=== PATIENT | male | born 1965 | race Caucasian/White ===

== ENCOUNTER 2019-12-01 17:26 | Inpatient (IN) | payer OTHER ==
--- NOTE | 2019-12-01 17:50 | PDOC H&P ---
History of Present Illness Admission Date/PCP: 12/01/19 17:26 Patient complains of: abdominal pain. History of Present Illness: YU FLOREZ is a 54 year old male with a history of colon cancer s/p resection 05/2019 currently on chemo completed 11 cycles, was transferred from [facility] to undergo ERCP for evaluation of cholestasis. Patient had presented to outside hospital yesterday with complaints of right upper quadrant abdominal pain that began 2 weeks ago radiating from the back to the abdominal region, occurring intermittently and lasting about 8 hours with no current. Exacerbated by food intake. No alleviating factors besides not eating. Denies prior episodes. Pain often feels sharp and aching. Admits to normal bowel movements. Over there, he was noted to have hyperbilirubinemia with total bilirubin of 4 and mildly elevated aminotransferases ast 98/alt 148 and ALP of 249. CT abdomen and pelvis showed mild inflammation of the distal gallbladder as well as enlargement of his hepatic ducts and common bile duct. Ultrasound revealed 5 x 8 mm stone within the common bile duct and CBD of 0.9 mm with extrahepatic biliary duct dilation but there was negative Zhu sign, mild gallbladder wall thickening of 0.3 cm and no pericholecystic fluid. Dr. Humphreys was contacted for ERCP and patient subsequently transferred over to [facility] for ERCP. Past Medical History Malignancy Medical History: Reports: Colorectal Cancer Past Surgical History Past Surgical History: Reports: Orthopedic Surgery - hand, Other - Partial colon resection, Social History Information Source: Patient Lives with: Spouse/Significant other Smoking Status: Former Smoker Cigarettes Packs Per Day: 1 Electronic Cigarette use?: No Number of Years Smokin Frequency of Alcohol Use: None Hx Recreational Drug Use: No Hx Prescription Drug Abuse: No - Advance Directive Resuscitation Status: Full Code Family History Family History: Malignancy Parental Family History Reviewed: Yes Children Family History Reviewed: NA Sibling(s) Family History Reviewed.: Yes Medication/Allergy Allergies/Adverse Reactions: tramadol Allergy (Verified 12/01/19 17:49) Review of Systems Constitutional: ABSENT: chills, fever(s) Eyes: ABSENT: visual disturbances Cardiovascular: ABSENT: chest pain Respiratory: ABSENT: cough, dyspnea Gastrointestinal: PRESENT: abdominal pain. ABSENT: constipation, diarrhea, nausea, vomiting Genitourinary: ABSENT: dysuria, nocturia Musculoskeletal: ABSENT: joint swelling Integumentary: ABSENT: diaphoresis Neurological: ABSENT: confusion Psychiatric: ABSENT: anxiety Endocrine: ABSENT: polyuria Hematologic/Lymphatic: ABSENT: easy bruising Physical Exam General appearance: PRESENT: no acute distress, cooperative Head exam: PRESENT: normocephalic Eye exam: PRESENT: EOMI. ABSENT: scleral icterus Mouth exam: PRESENT: neck supple Neck exam: ABSENT: JVD Respiratory exam: PRESENT: clear to auscultation nohemy, unlabored. ABSENT: tachypnea, wheezes Cardiovascular exam: PRESENT: RRR, +S1, +S2. ABSENT: tachycardia GI/Abdominal exam: PRESENT: normal bowel sounds, soft, tenderness - Minimal right upper quadrant tenderness. ABSENT: distended, firm, guarding, rebound, rigid Gentrourinary exam: ABSENT: ecchymosis Extremities exam: ABSENT: pedal edema Musculoskeletal exam: PRESENT: ambulatory Neurological exam: PRESENT: alert, awake, oriented to person, oriented to place, oriented to time, oriented to situation Psychiatric exam: ABSENT: agitated, anxious Focused psych exam: ABSENT: pressured speech Skin exam: ABSENT: jaundice Assessment and Plan - Diagnosis (1) Choledocholithiasis with obstruction Qualifiers: Cholecystitis presence: without cholecystitis Qualified Code(s): K80.51 - Calculus of bile duct without cholangitis or cholecystitis with obstruction Is this a current diagnosis for this admission?: Yes Plan: RUQ ultrasound from [facility] report reviewed by me which demonstrates 5 x 8 mm stone within the common bile duct and CBD of 0.9 mm with extrahepatic biliary duct dilation but there was negative Zhu sign, mild gallbladder wall thickening of 0.3 cm and no pericholecystic fluid. Obtain CMP and CBC with lipase Consult placed for Dr. Humphreys Clear liquids for now if tolerable N.p.o. past midnight in case of possible ERCP Pain control and antiemetics as needed IV fluids (2) Colon cancer Qualifiers: Colon location: ascending Qualified Code(s): C18.2 - Malignant neoplasm of ascending colon Is this a current diagnosis for this admission?: Yes Plan: Diagnosed May 2019 at which time he underwent partial colonic resection. Has completed 11 cycles of chemo and is due for 1 more cycle of chemo which has been rescheduled for Friday next week by his oncologist Dr. Martinez. - Time Time Spent with patient: 35 or more minutes
[2019-12-01] MEDS ORDERED: TEMAZEPAM 7.5 MG CAPSULE PO PRN (18:26)
[2019-12-01] MEDS ORDERED: DOCUSATE SODIUM 100 MG CAPSULE PO PRN (18:26)
[2019-12-01] MEDS ORDERED: ONDANSETRON HCL INJ/PF 4 MG/2 ML SDV IV PRN (18:26)
[2019-12-01] MEDS ORDERED: PROMETHAZINE HCL INJ 25 MG/1 ML VIAL IV PRN (18:26)
[2019-12-01] MEDS ORDERED: INFLUENZA QUAD (6MOS+) 2019-20 VAC 0.5 ML SYR IM ONE (18:26)
[2019-12-01] MEDS ORDERED: GLUCAGON,HUMAN RECOMB 1 MG INJ SUBCUT PRN (18:40)
[2019-12-01] MEDS ORDERED: DEXTROSE 40% GEL 15 GM TUBE PO PRN ×2 (18:40)
[2019-12-01] MEDS ORDERED: DEXTROSE 50%-WATER 25 GM/50 ML DISP.SYRIN IV PRN ×2 (18:40)
[2019-12-01] MEDS: OXYCODONE-ACETAMINOPHEN 5-325 MG TABLET PO PRN ×2 (18:53→22:46)
[2019-12-01] MEDS: DEXTROSE 5%-NORMAL SALINE 1,000 ML IV PRN (18:54)
[2019-12-01 19:05] LABS: INTERNATIONAL RATION (INR) 1.01; PROTHROMBIN TIME 13.3 SEC (11.4-15.4)
[2019-12-01 19:06] LABS: PARTIAL THROMBOPLASTIN TIME 28.1 SEC (23.5-35.8)
[2019-12-01 19:08] LABS: HEMATOCRIT 40.1 % (37.9-51.0); HEMOGLOBIN 13.6 g/dL (13.5-17.0); MEAN CORPUSCULAR HEMOGLOBIN 29.2 pg (27.0-33.4); MEAN CORPUSCULAR HGB CONC 33.9 g/dL (32.0-36.0); MEAN CORPUSCULAR VOLUME 86 fl (80-97); RED BLOOD COUNT 4.67 10^6/uL (4.35-5.55); RED CELL DISTRIBUTION WIDTH 21.3 % (11.5-14.0); WHITE BLOOD COUNT 2.9 10^3/uL (4.0-10.5)
[2019-12-01 19:14] LABS: ALKALINE PHOSPHATASE 275 U/L (38-126); ANION GAP 12 (5-19); ASPARTATE AMINO TRANSFERASE 123 U/L (17-59); BILIRUBIN,DIRECT 2.9 mg/dL (0.0-0.4); BILIRUBIN,TOTAL 4.3 mg/dL (0.2-1.3); BLOOD UREA NITROGEN 9 mg/dL (7-20); CALCIUM 9.6 mg/dL (8.4-10.2); CARBON DIOXIDE 23 mmol/L (22-30); CHLORIDE 105 mmol/L (98-107); GLUCOSE 89 mg/dL (75-110); POTASSIUM 4.2 mmol/L (3.6-5.0); TOTAL PROTEIN 7.6 g/dL (6.3-8.2)
[2019-12-01 19:29] LABS: PLATELET COUNT 81 10^3/uL (150-450)
[2019-12-01] MEDS: ACETAMINOPHEN 325 MG TABLET PO PRN ×2 (19:48→23:06)
[2019-12-01] MEDS ORDERED: FENTANYL CITRATE INJ/PF 100 MCG/2 ML AMPUL IV PRN (20:26)
[2019-12-01] MEDS: HEPARIN SOD (PORCINE) 5,000 UNIT/ML 1 ML VIAL SUBCUT SCH (21:14)
[2019-12-02] MEDS: HEPARIN SOD (PORCINE) 5,000 UNIT/ML 1 ML VIAL SUBCUT SCH ×3 (05:03→21:09)
[2019-12-02] MEDS: PANTOPRAZOLE SODIUM 40 MG TABLET.DR PO SCH (05:03)
[2019-12-02 06:06] LABS: HEMATOCRIT 37.8 % (37.9-51.0); HEMOGLOBIN 12.7 g/dL (13.5-17.0); MEAN CORPUSCULAR HGB CONC 33.7 g/dL (32.0-36.0); MEAN CORPUSCULAR VOLUME 86 fl (80-97); RED BLOOD COUNT 4.39 10^6/uL (4.35-5.55); RED CELL DISTRIBUTION WIDTH 21.2 % (11.5-14.0); WHITE BLOOD COUNT 2.2 10^3/uL (4.0-10.5)
[2019-12-02 06:13] LABS: ALBUMIN 3.5 g/dL (3.5-5.0); ALKALINE PHOSPHATASE 227 U/L (38-126); ANION GAP 9 (5-19); ASPARTATE AMINO TRANSFERASE 120 U/L (17-59); BILIRUBIN,DIRECT 3.3 mg/dL (0.0-0.4); BLOOD UREA NITROGEN 7 mg/dL (7-20); CALCIUM 9.3 mg/dL (8.4-10.2); CARBON DIOXIDE 22 mmol/L (22-30); CHLORIDE 107 mmol/L (98-107); CHOLESTEROL 195.54 mg/dL (0-200); GLUCOSE 107 mg/dL (75-110); POTASSIUM 4.3 mmol/L (3.6-5.0); TOTAL PROTEIN 6.5 g/dL (6.3-8.2); TRIGLYCERIDES 84 mg/dL (<150)
[2019-12-02] MEDS: DEXTROSE 5%-NORMAL SALINE 1,000 ML IV PRN ×3 (06:14→19:56)
[2019-12-02 06:24] LABS: DIRECT LDL 113 mg/dL (<100)
--- NOTE | 2019-12-02 06:42 | PDOC CONSULTATION ---
Consultation Consult Date: 12/02/19 Provider Consulted: SURGICAL SURGICALIST History of Present Illness Admission Date/PCP: 12/01/19 17:26 History of Present Illness: YU FLOREZ is a 54 year old male seen in consultation at the request of the hospitalist service. This was a patient found to have choledocholithiasis at an outlying facility. The patient was transferred here for ERCP. He has a history of recent colon cancer, status post resection. The patient is currently undergoing chemotherapy (FOLFOX). At present, the patient denies chest pain, shortness of breath, fevers, chills, nausea, vomiting, abdominal pain, melena, hematochezia, blurry vision, dizziness. For the last 2 days patient has experienced severe, stabbing abdominal pain and significant nausea. Narcotics make the pain better. Nothing makes it worse. The pain radiates to his back, and it is sharp/stabbing in nature. He rates his pain 10 out of 10 at its worst. He reports that his pain is 1 out of 10 right now. Past Medical History Malignancy Medical History: Reports: Colorectal Cancer - Currently undergoing FOLFOX therapy Past Surgical History Past Surgical History: Reports: Orthopedic Surgery - hand, Other - Partial colon resection, Social History Lives with: Spouse/Significant other Smoking Status: Former Smoker Cigarettes Packs Per Day: 1 Electronic Cigarette use?: No Number of Years Smokin Frequency of Alcohol Use: None Hx Recreational Drug Use: No Drugs: None Hx Prescription Drug Abuse: No - Advance Directive Resuscitation Status: Full Code Family History Family History: Malignancy Parental Family History Reviewed: Yes Children Family History Reviewed: Yes Sibling(s) Family History Reviewed.: Yes Medication/Allergy Allergies/Adverse Reactions: tramadol Allergy (Verified 12/01/19 17:49) Review of Systems Constitutional: PRESENT: anorexia. ABSENT: chills, fatigue, fever(s), headache(s) Eyes: ABSENT: visual disturbances Nose, Mouth, and Throat: ABSENT: sore throat Cardiovascular: ABSENT: chest pain Respiratory: ABSENT: cough, dyspnea Gastrointestinal: PRESENT: abdominal pain - Now subsided, nausea - Now subsided. ABSENT: heartburn, hematemesis, hematochezia, melena, vomiting Genitourinary: ABSENT: dysuria Musculoskeletal: ABSENT: back pain Integumentary: ABSENT: rash Neurological: ABSENT: confusion, convulsions, dizziness Psychiatric: ABSENT: anxiety, depression Endocrine: ABSENT: cold intolerance, heat intolerance Hematologic/Lymphatic: ABSENT: easy bleeding, easy bruising Physical Exam Vital Signs: Temp Pulse Resp BP Pulse Ox 97.5 F 58 L 21 H 166/81 H 100 12/01/19 23:39 12/01/19 23:39 12/01/19 23:39 12/01/19 23:39 12/01/19 23:39 Intake & Output 11/30/19 12/01/19 12/02/19 06:59 06:59 06:59 Intake Total 1150 Output Total 1050 Balance 100 Weight 109.1 kg General appearance: PRESENT: no acute distress. ABSENT: obese Head exam: PRESENT: atraumatic, normocephalic Eye exam: PRESENT: EOMI, PERRLA. ABSENT: scleral icterus Mouth exam: PRESENT: moist, neck supple Neck exam: ABSENT: tenderness, thyromegaly, tracheal deviation Respiratory exam: PRESENT: unlabored. ABSENT: tachypnea, wheezes Cardiovascular exam: PRESENT: RRR Pulses: PRESENT: normal radial pulses GI/Abdominal exam: PRESENT: soft. ABSENT: tenderness Rectal exam: PRESENT: deferred Extremities exam: ABSENT: clubbing Musculoskeletal exam: ABSENT: deformity Neurological exam: PRESENT: alert, awake, oriented to person, oriented to place, oriented to time, oriented to situation, CN II-XII grossly intact. ABSENT: motor sensory deficit Psychiatric exam: ABSENT: agitated, anxious, depressed Focused psych exam: ABSENT: delusional Skin exam: PRESENT: jaundice. ABSENT: cyanosis, erythema Results Laboratory Results: 12/02/19 05:35 12/01/19 12/01/19 12/02/19 18:44 18:44 05:35 WBC 2.9 L RBC 4.67 Hgb 13.6 Hct 40.1 MCV 86 MCH 29.2 MCHC 33.9 RDW 21.3 H Plt Count 81 L Sodium 140.2 137.8 Potassium 4.2 4.3 Chloride 105 107 Carbon Dioxide 23 22 Anion Gap 12 9 BUN 9 7 Creatinine 0.75 0.68 Est GFR ( Amer) > 60 > 60 Glucose 89 107 Calcium 9.6 9.3 Magnesium 2.2 2.2 Total Bilirubin 4.3 H 5.0 H AST 123 H 120 H Alkaline Phosphatase 275 H 227 H Total Protein 7.6 6.5 Albumin 4.0 3.5 Triglycerides 84 Cholesterol 195.54 LDL Cholesterol Direct 113 H VLDL Cholesterol 17.0 HDL Cholesterol 62 Lipase 547.4 H Assessment & Plan - Diagnosis (1) Choledocholithiasis with obstruction Qualifiers: Cholecystitis presence: without cholecystitis Qualified Code(s): K80.51 - Calculus of bile duct without cholangitis or cholecystitis with obstruction Is this a current diagnosis for this admission?: Yes - Plan Summary Plan Summary: This is a 54-year-old male with choledocholithiasis and obstruction. His bilirubin is 5 today. The patient is set up for an ERCP in the near future. After discussion with the patient, he is stated that his oncologist "will not allow him to have surgery" while he is on chemotherapy. The surgical list today we will touch base with his oncologist. If this is truly the case, the patient may require ERCP with stent placement, until chemotherapy can be stopped. Will perform cholecystectomy as soon as is feasible. Will follow.
[2019-12-02 06:45] LABS: PLATELET COUNT 73 10^3/uL (150-450)
[2019-12-02 06:50] LABS: ABSOLUTE LYMPHOCYTES# (MANUAL) 0.7 10^3/uL (0.5-4.7); ABSOLUTE MONOCYTES # (MANUAL) 0.4 10^3/uL (0.1-1.4); BAND NEUTROPHILS % (MANUAL) 1 % (3-5); BASOPHILS % (MANUAL) 0 % (0-2); EOSINOPHILS % (MANUAL) 1 % (0-6); LYMPHOCYTES % (MANUAL) 31 % (13-45); MONOCYTES % (MANUAL) 18 % (3-13); SEGMENTED NEUTROPHILS % (MAN) 49 % (42-78); TOTAL CELLS COUNTED 100
[2019-12-02 06:58] LABS: ANISOCYTOSIS 3+; OVALOCYTES 1+; PLATELET COMMENT DECREASED; POIKILOCYTOSIS 1+
[2019-12-02 06:59] LABS: TEAR DROP CELLS SLIGHT
[2019-12-02] MEDS ORDERED: MORPHINE SULFATE 10 MG/ML INJ IV PRN (07:21)
[2019-12-02] MEDS ORDERED: SUCCINYLCHOLINE CHLORIDE INJ 200 MG/10 ML VIAL ONE (09:08)
[2019-12-02] MEDS ORDERED: DEXAMETHASONE SOD PHOSPHATE INJ 4 MG/1 ML VIAL ONE (09:08)
--- NOTE | 2019-12-02 10:05 | PDOC PROGRESS REPORT ---
Subjective Progress Note for:: 12/02/19 Subjective:: Had pain yesterday. No pain this morning. Feels quite well. Reason For Visit: OBSTRUCTIVE CHOLEDOCOLITHIESIS Physical Exam Vital Signs: Temp Pulse Resp BP Pulse Ox 97.6 F 54 L 17 101/53 L 99 12/02/19 07:36 12/02/19 07:36 12/02/19 07:36 12/02/19 07:36 12/02/19 07:36 Intake & Output 12/01/19 12/02/19 12/03/19 06:59 06:59 06:59 Intake Total 1150 Output Total 1050 Balance 100 Weight 109.1 kg General appearance: PRESENT: no acute distress, cooperative Respiratory exam: PRESENT: clear to auscultation nohemy Cardiovascular exam: PRESENT: RRR GI/Abdominal exam: PRESENT: other - Soft, nondistended, nontender to palpation even with deep palpation in the right upper quadrant. Results Laboratory Results: 12/02/19 05:35 12/02/19 05:35 12/01/19 12/01/19 12/02/19 18:44 18:44 05:35 WBC 2.9 L 2.2 L RBC 4.67 4.39 Hgb 13.6 12.7 L Hct 40.1 37.8 L MCV 86 86 MCH 29.2 29.0 MCHC 33.9 33.7 RDW 21.3 H 21.2 H Plt Count 81 L 73 L Seg Neutrophils % Not Reportable Sodium 140.2 Potassium 4.2 Chloride 105 Carbon Dioxide 23 Anion Gap 12 BUN 9 Creatinine 0.75 Est GFR ( Amer) > 60 Glucose 89 Calcium 9.6 Magnesium 2.2 Total Bilirubin 4.3 H AST 123 H Alkaline Phosphatase 275 H Total Protein 7.6 Albumin 4.0 Triglycerides Cholesterol LDL Cholesterol Direct VLDL Cholesterol HDL Cholesterol Lipase 547.4 H 12/02/19 05:35 WBC RBC Hgb Hct MCV MCH MCHC RDW Plt Count Seg Neutrophils % Sodium 137.8 Potassium 4.3 Chloride 107 Carbon Dioxide 22 Anion Gap 9 BUN 7 Creatinine 0.68 Est GFR ( Amer) > 60 Glucose 107 Calcium 9.3 Magnesium 2.2 Total Bilirubin 5.0 H AST 120 H Alkaline Phosphatase 227 H Total Protein 6.5 Albumin 3.5 Triglycerides 84 Cholesterol 195.54 LDL Cholesterol Direct 113 H VLDL Cholesterol 17.0 HDL Cholesterol 62 Lipase Assessment & Plan - Diagnosis (1) Choledocholithiasis with obstruction Qualifiers: Cholecystitis presence: without cholecystitis Qualified Code(s): K80.51 - Calculus of bile duct without cholangitis or cholecystitis with obstruction Is this a current diagnosis for this admission?: Yes Plan: Patient with obstructive choledocholithiasis without evidence of cholangitis. Ideally he should undergo an ERCP followed by laparoscopic cholecystectomy. However patient is leukopenic status post his chemotherapy. I had a long discussion with his oncologist. Oncologist feels that if he needs any urgent procedure he should have it done. ERCP is strongly indicated to relieve his obstruction and avoid cholangitis. As far as his cholecystectomy afterwards, I do not think he has cholecystitis at this time since he has no pain and no tenderness and this procedure can wait a couple of weeks until his white blood cell count recovers. His oncologist concurs with my recommendations. Patient can be transferred back to his hospital after his ERCP with follow-up with his surgeon who did his colon cancer surgery for semi-elective cholecystectomy in the next few weeks. - Time Time Spent with patient: Less than 15 minutes
--- NOTE | 2019-12-02 15:35 | PDOC PROGRESS REPORT ---
Subjective Progress Note for:: 12/02/19 Subjective:: Patient was in a lot of pain yesterday night. However this morning his pain has resolved. He was having 1 of those paroxysmal episodes. Currently has no other complaints. Reason For Visit: OBSTRUCTIVE CHOLEDOCOLITHIESIS Physical Exam Vital Signs: Temp Pulse Resp BP Pulse Ox 97.9 F 57 L 16 105/54 L 99 12/02/19 11:02 12/02/19 11:02 12/02/19 11:02 12/02/19 11:02 12/02/19 11:02 Intake & Output 12/01/19 12/02/19 12/03/19 06:59 06:59 06:59 Intake Total 1150 1000 Output Total 1050 Balance 100 1000 Weight 109.1 kg 109.1 kg General appearance: PRESENT: no acute distress, cooperative Neck exam: ABSENT: JVD Respiratory exam: PRESENT: clear to auscultation nohemy, unlabored. ABSENT: tachypnea, wheezes Cardiovascular exam: PRESENT: RRR, +S1, +S2. ABSENT: tachycardia GI/Abdominal exam: PRESENT: normal bowel sounds, soft. ABSENT: rebound, rigid, tenderness Neurological exam: PRESENT: alert, awake, oriented to person, oriented to place, oriented to time, oriented to situation Results Laboratory Results: 12/02/19 05:35 12/02/19 05:35 12/01/19 12/01/19 12/02/19 18:44 18:44 05:35 WBC 2.9 L 2.2 L RBC 4.67 4.39 Hgb 13.6 12.7 L Hct 40.1 37.8 L MCV 86 86 MCH 29.2 29.0 MCHC 33.9 33.7 RDW 21.3 H 21.2 H Plt Count 81 L 73 L Seg Neutrophils % Not Reportable Sodium 140.2 Potassium 4.2 Chloride 105 Carbon Dioxide 23 Anion Gap 12 BUN 9 Creatinine 0.75 Est GFR ( Amer) > 60 Glucose 89 Calcium 9.6 Magnesium 2.2 Total Bilirubin 4.3 H AST 123 H Alkaline Phosphatase 275 H Total Protein 7.6 Albumin 4.0 Triglycerides Cholesterol LDL Cholesterol Direct VLDL Cholesterol HDL Cholesterol Lipase 547.4 H 12/02/19 05:35 WBC RBC Hgb Hct MCV MCH MCHC RDW Plt Count Seg Neutrophils % Sodium 137.8 Potassium 4.3 Chloride 107 Carbon Dioxide 22 Anion Gap 9 BUN 7 Creatinine 0.68 Est GFR ( Amer) > 60 Glucose 107 Calcium 9.3 Magnesium 2.2 Total Bilirubin 5.0 H AST 120 H Alkaline Phosphatase 227 H Total Protein 6.5 Albumin 3.5 Triglycerides 84 Cholesterol 195.54 LDL Cholesterol Direct 113 H VLDL Cholesterol 17.0 HDL Cholesterol 62 Lipase Assessment and Plan - Diagnosis (1) Choledocholithiasis with obstruction Qualifiers: Cholecystitis presence: without cholecystitis Qualified Code(s): K80.51 - Calculus of bile duct without cholangitis or cholecystitis with obstruction Is this a current diagnosis for this admission?: Yes Plan: RUQ ultrasound from [facility] report reviewed by me which demonstrates 5 x 8 mm stone within the common bile duct and CBD of 0.9 mm with extrahepatic biliary duct dilation but there was negative Zhu sign, mild gallbladder wall thickening of 0.3 cm and no pericholecystic fluid. Dr. Humphreys following N.p.o. for ERCP Pain control and antiemetics as needed. Morphine as needed. IV fluids Surgery discussed need for cholecystectomy with patient's primary oncologist who prefers that patient wait till chemotherapy is completed before undergoing surgery. At this time, surgery has held off on proceeding cholecystectomy given this. (2) Colon cancer Qualifiers: Colon location: ascending Qualified Code(s): C18.2 - Malignant neoplasm of ascending colon Is this a current diagnosis for this admission?: Yes Plan: Diagnosed May 2019 at which time he underwent partial colonic resection. Has completed 11 cycles of chemo and is due for 1 more cycle of chemo which has been rescheduled for Friday next week by his oncologist Dr. Martinez. (3) Chemotherapy-induced thrombocytopenia Is this a current diagnosis for this admission?: Yes Plan: Monitor CBC (4) Leukopenia due to antineoplastic chemotherapy Is this a current diagnosis for this admission?: Yes Plan: Monitor CBC - Time Time Spent with patient: 15-24 minutes
[2019-12-02] MEDS ORDERED: FENTANYL CITRATE INJ/PF 100 MCG/2 ML AMPUL ONE (17:33)
[2019-12-02] MEDS ORDERED: PROPOFOL INJ 200 MG/20 ML VIAL IV ONE (17:33)
[2019-12-02] MEDS ORDERED: MIDAZOLAM 2 MG/2 ML INJ ONE (17:33)
[2019-12-02] MEDS ORDERED: ONDANSETRON HCL INJ/PF 4 MG/2 ML SDV ONE (17:34)
[2019-12-02] MEDS ORDERED: GLUCAGON,HUMAN RECOMB 1 MG INJ ONE (17:49)
--- NOTE | 2019-12-02 19:01 | PDOC CONSULTATION ---
Consultation Consult Date: 12/01/19 Provider Consulted: RON MORRIS History of Present Illness Admission Date/PCP: 12/01/19 17:26 History of Present Illness: YU FLOREZ is a 54 year old male who was transferred from the [facility] for choledocholithiasis and need for an ERCP. He has been having recurrent right upper quadrant pain for the last few weeks usually postprandial and associated with nausea and occasional vomiting. At the emergency room his bilirubin was 4 with elevated transaminases. His CT showed dilated common bile ducts but the ultrasound showed possible stone within the bile duct. He has colon cancer and is currently undergoing chemotherapy. He has 1 more dose left. On presentation to the hospital his bilirubin was 4.3 with AST of 123 ALT of 140, alkaline phosphatase of 275 and a lipase of 540. Past Medical History Malignancy Medical History: Reports: Colorectal Cancer - Currently undergoing FOLFOX therapy Past Surgical History Past Surgical History: Reports: Orthopedic Surgery - hand, Other - Partial colon resection, Social History Lives with: Spouse/Significant other Smoking Status: Former Smoker Cigarettes Packs Per Day: 1 Electronic Cigarette use?: No Number of Years Smokin Frequency of Alcohol Use: None Hx Recreational Drug Use: No Drugs: None Hx Prescription Drug Abuse: No - Advance Directive Resuscitation Status: Full Code Family History Family History: Malignancy Parental Family History Reviewed: No Children Family History Reviewed: NA Sibling(s) Family History Reviewed.: NA Medication/Allergy Allergies/Adverse Reactions: tramadol Allergy (Verified 12/01/19 17:49) Review of Systems All systems: reviewed and no additional remarkable complaints except as stated Physical Exam Vital Signs: Temp Pulse Resp BP Pulse Ox 98.2 F 57 L 16 120/68 99 12/02/19 15:30 12/02/19 15:30 12/02/19 15:30 12/02/19 15:30 12/02/19 15:30 Intake & Output 12/01/19 12/02/19 12/03/19 06:59 06:59 06:59 Intake Total 1150 1000 Output Total 1050 Balance 100 1000 Weight 109.1 kg 109.1 kg Exam: General: Patient is alert and looks well. HEENT: There is no pallor or jaundice. PERRLA. Oropharynx normal Respiratory: No chest deformity. No respiratory distress. Chest wall palpitation was unremarkable. Breath sounds were normal Cardiovascular: Heart sounds 1 and 2 normal with no murmurs. Abdominal: Not distended. Soft and nontender. Liver and spleen not palpable. No ascites demonstrated. Bowel sounds active. Rectal examination was deferred. Extremities: No edema Neurological: Alert and oriented x4. Grossly nonfocal. Normal speech Skin: No significant rash Psychological: Normal affect Results Laboratory Results: 12/02/19 05:35 12/02/19 05:35 12/01/19 12/01/19 12/02/19 18:44 18:44 05:35 WBC 2.9 L 2.2 L RBC 4.67 4.39 Hgb 13.6 12.7 L Hct 40.1 37.8 L MCV 86 86 MCH 29.2 29.0 MCHC 33.9 33.7 RDW 21.3 H 21.2 H Plt Count 81 L 73 L Seg Neutrophils % Not Reportable Sodium 140.2 Potassium 4.2 Chloride 105 Carbon Dioxide 23 Anion Gap 12 BUN 9 Creatinine 0.75 Est GFR ( Amer) > 60 Glucose 89 Calcium 9.6 Magnesium 2.2 Total Bilirubin 4.3 H AST 123 H Alkaline Phosphatase 275 H Total Protein 7.6 Albumin 4.0 Triglycerides Cholesterol LDL Cholesterol Direct VLDL Cholesterol HDL Cholesterol Lipase 547.4 H 12/02/19 05:35 WBC RBC Hgb Hct MCV MCH MCHC RDW Plt Count Seg Neutrophils % Sodium 137.8 Potassium 4.3 Chloride 107 Carbon Dioxide 22 Anion Gap 9 BUN 7 Creatinine 0.68 Est GFR ( Amer) > 60 Glucose 107 Calcium 9.3 Magnesium 2.2 Total Bilirubin 5.0 H AST 120 H Alkaline Phosphatase 227 H Total Protein 6.5 Albumin 3.5 Triglycerides 84 Cholesterol 195.54 LDL Cholesterol Direct 113 H VLDL Cholesterol 17.0 HDL Cholesterol 62 Lipase Assessment & Plan - Diagnosis (1) Choledocholithiasis with obstruction Qualifiers: Cholecystitis presence: without cholecystitis Qualified Code(s): K80.51 - Calculus of bile duct without cholangitis or cholecystitis with obstruction Is this a current diagnosis for this admission?: Yes Plan: He has ultrasound has evidence for choledocholithiasis and his symptoms are also consistent. He will undergo an ERCP. He does have multiple gallstones but according to the patient his oncologist wants him to wait until after chemoth erapy to have cholecystectomy. (2) Abnormal liver function test Is this a current diagnosis for this admission?: Yes (3) Jaundice Is this a current diagnosis for this admission?: Yes
--- NOTE | 2019-12-02 19:03 | Operative Report ---
Operative Report DATE OF SURGERY: 12/02/19 Operative Report: Pre-op diagnosis: Jaundice and gallstones Post-op diagnosis: Common bile duct stone Surgery: ERCP with sphincterotomy and balloon stone extraction Medications: As per anesthesia Tissue removed: None Procedure: After informed consent obtained from patient, patient was placed under general anesthesia. The ERCP endoscope was then inserted into the esophagus blindly and advanced into the stomach. The duodenum was entered and the ampulla was identified. Using the triple-lumen sphincterotomy catheter the common bile duct was freely cannulated. A cholangiogram was obtained . A good sized sphincterotomy was then performed using the endocut mode. The catheter was removed over the guidewire before a 9-12 mm balloon catheter was inserted. The balloon was inflated to 12 mm in the proximal common bile duct and pulled down the duct. The duct was swept two more times. A balloon occlusion cholangiogram was normal. Patient tolerated procedure well. Findings Common bile duct: Small yellow stone was removed Intrahepatic ducts: Normal Pancreatic duct: Not cannulated Plan: Follow-up LFTs. OPERATION: .
[2019-12-03 05:48] LABS: HEMATOCRIT 38.3 % (37.9-51.0); HEMOGLOBIN 12.9 g/dL (13.5-17.0); MEAN CORPUSCULAR HEMOGLOBIN 29.2 pg (27.0-33.4); MEAN CORPUSCULAR HGB CONC 33.7 g/dL (32.0-36.0); MEAN CORPUSCULAR VOLUME 87 fl (80-97); PLATELET COUNT 101 10^3/uL (150-450); RED BLOOD COUNT 4.43 10^6/uL (4.35-5.55); RED CELL DISTRIBUTION WIDTH 21.2 % (11.5-14.0)
[2019-12-03] MEDS: PANTOPRAZOLE SODIUM 40 MG TABLET.DR PO SCH (05:48)
[2019-12-03 05:49] LABS: ALBUMIN 3.5 g/dL (3.5-5.0); ALKALINE PHOSPHATASE 228 U/L (38-126); ANION GAP 7 (5-19); ASPARTATE AMINO TRANSFERASE 114 U/L (17-59); BILIRUBIN,DIRECT 0.8 mg/dL (0.0-0.4); BLOOD UREA NITROGEN 5 mg/dL (7-20); CALCIUM 9.6 mg/dL (8.4-10.2); CARBON DIOXIDE 23 mmol/L (22-30); CHLORIDE 109 mmol/L (98-107); GLUCOSE 161 mg/dL (75-110); POTASSIUM 4.6 mmol/L (3.6-5.0); TOTAL PROTEIN 6.2 g/dL (6.3-8.2)
[2019-12-03] MEDS: DEXTROSE 5%-NORMAL SALINE 1,000 ML IV PRN (05:50)
[2019-12-03] MEDS: HEPARIN SOD (PORCINE) 5,000 UNIT/ML 1 ML VIAL SUBCUT SCH (06:01)
[2019-12-03 07:08] LABS: ABSOLUTE LYMPHOCYTES# (MANUAL) 0.3 10^3/uL (0.5-4.7); BASOPHILS % (MANUAL) 0 % (0-2); EOSINOPHILS % (MANUAL) 2 % (0-6); LYMPHOCYTES % (MANUAL) 18 % (13-45); MONOCYTES % (MANUAL) 0 % (3-13); SEGMENTED NEUTROPHILS % (MAN) 78 % (42-78); TOTAL CELLS COUNTED 50
[2019-12-03 07:12] LABS: ANISOCYTOSIS 3+; OVALOCYTES 1+; PLATELET COMMENT DECREASED; TEAR DROP CELLS SLIGHT
[2019-12-03 07:15] LABS: WHITE BLOOD COUNT 1.6 10^3/uL (4.0-10.5)
--- NOTE | 2019-12-03 08:05 | PDOC PROGRESS REPORT ---
Subjective Progress Note for:: 12/03/19 Subjective:: feels better Reason For Visit: OBSTRUCTIVE CHOLEDOCOLITHIESIS Physical Exam Vital Signs: Temp Pulse Resp BP Pulse Ox 98.1 F 65 18 118/74 97 12/03/19 00:50 12/03/19 00:50 12/03/19 00:50 12/03/19 00:50 12/03/19 00:50 Intake & Output 12/02/19 12/03/19 12/04/19 06:59 06:59 06:59 Intake Total 1150 3346 Output Total 1050 Balance 100 3346 Weight 109.1 kg 106.6 kg General appearance: PRESENT: no acute distress Head exam: PRESENT: normocephalic Eye exam: PRESENT: EOMI Ear exam: PRESENT: normal external ear exam Mouth exam: PRESENT: moist Neck exam: PRESENT: full ROM Respiratory exam: PRESENT: clear to auscultation nohemy Cardiovascular exam: PRESENT: RRR Pulses: PRESENT: normal femoral pulses, normal dorsalis pedis pul Vascular exam: PRESENT: normal capillary refill GI/Abdominal exam: PRESENT: soft Rectal exam: PRESENT: deferred Extremities exam: PRESENT: full ROM Musculoskeletal exam: PRESENT: full ROM Neurological exam: PRESENT: alert, awake, oriented to person, oriented to place Psychiatric exam: PRESENT: appropriate affect Skin exam: PRESENT: dry Results Laboratory Results: 12/03/19 05:11 12/03/19 05:11 12/03/19 12/03/19 05:11 05:11 WBC 1.6 L RBC 4.43 Hgb 12.9 L Hct 38.3 MCV 87 MCH 29.2 MCHC 33.7 RDW 21.2 H Plt Count 101 L Seg Neutrophils % Not Reportable Sodium 138.9 Potassium 4.6 Chloride 109 H Carbon Dioxide 23 Anion Gap 7 BUN 5 L Creatinine 0.57 Est GFR ( Amer) > 60 Glucose 161 H Calcium 9.6 Total Bilirubin 2.0 H D AST 114 H Alkaline Phosphatase 228 H Total Protein 6.2 L Albumin 3.5 Assessment & Plan - Time Time Spent with patient: 25-34 minutes - Plan Summary Plan Summary: s/p ercp last pm with removal of common duct stone pt doing well today bili normalizing don clears pt will f/u iwth his surgeon in [place] for lap kris in a few weeks when wnc normalizes surgery will sign off ok from surgery standpt for discharge.
--- NOTE | 2019-12-03 10:14 | RADIOLOGY REPORT (SQ) ---
EXAM DESCRIPTION: ENDO CATH/BILIARY DUCT; NO CHG FLUORO COMPLETED DATE/TIME: 12/02/2019 7:36 pm REASON FOR STUDY: ERCP COMPARISON: None. FLUOROSCOPY TIME: 1.5 minutes 4 digital fluoroscopic images saved to PACS. TECHNIQUE: Intra-operative images acquired during surgical procedure to evaluate progress. NUMBER OF IMAGES: 4 digital fluoroscopic images LIMITATIONS: None. FINDINGS: Intra procedural imaging and fluoro demonstrates contrast injected into the common bile du ct with reflux into nondilated common hepatic and intrahepatic ducts. No gross filling defects. Subsequent films show sweeping of the common bile duct with a balloon tipped catheter. Please see th e operative report for further details. IMPRESSION: IMAGE(S) OBTAINED DURING PROCEDURE. COMMENT: Quality ID [id number]: Final reports for procedures using fluoroscopy that document radiation exp osure indices, or exposure time and number of fluorographic images (if radiation exposure indices are not available) Please consult full operative report of the attending physician for description of the procedure. TECHNICAL DOCUMENTATION: JOB ID: [id number] [employer]- All Rights Reserved Reading location - IP/workstation name: [email or web address]
--- NOTE | 2019-12-03 10:14 | RADIOLOGY REPORT (SQ) ---
EXAM DESCRIPTION: ENDO CATH/BILIARY DUCT; NO CHG FLUORO COMPLETED DATE/TIME: 12/02/2019 7:36 pm REASON FOR STUDY: ERCP COMPARISON: None. FLUOROSCOPY TIME: 1.5 minutes 4 digital fluoroscopic images saved to PACS. TECHNIQUE: Intra-operative images acquired during surgical procedure to evaluate progress. NUMBER OF IMAGES: 4 digital fluoroscopic images LIMITATIONS: None. FINDINGS: Intra procedural imaging and fluoro demonstrates contrast injected into the common bile du ct with reflux into nondilated common hepatic and intrahepatic ducts. No gross filling defects. Subsequent films show sweeping of the common bile duct with a balloon tipped catheter. Please see th e operative report for further details. IMPRESSION: IMAGE(S) OBTAINED DURING PROCEDURE. COMMENT: Quality ID [id number]: Final reports for procedures using fluoroscopy that document radiation exp osure indices, or exposure time and number of fluorographic images (if radiation exposure indices are not available) Please consult full operative report of the attending physician for description of the procedure. TECHNICAL DOCUMENTATION: JOB ID: [id number] [employer]- All Rights Reserved Reading location - IP/workstation name: [email or web address]
[2019-12-03 12:45] VITALS: BP 118/74
--- NOTE | 2019-12-03 13:06 | PDOC DISCHARGE SUMMARY ---
Impression - Admit/DC Date/PCP Admission Date/Primary Care Provider: 12/01/19 17:26 Discharge Date: 12/03/19 - Discharge Diagnosis (1) Choledocholithiasis with obstruction Is this a current diagnosis for this admission?: Yes (2) Colon cancer Is this a current diagnosis for this admission?: Yes (3) Chemotherapy-induced thrombocytopenia Is this a current diagnosis for this admission?: Yes (4) Leukopenia due to antineoplastic chemotherapy Is this a current diagnosis for this admission?: Yes - Assessment Summary: On arrival at the hospital, patient was noted to have stable vital signs. Metabolic panel revealed elevated transaminases and hyperbilirubinemia with minimally elevated lipase. CBC revealed thrombocytopenia as well as leukopenia which were likely secondary to his chemotherapy. Patient was noted to be having biliary colic pain secondary to obstructive choledocholithiasis. He received pain control with narcotics. He was evaluated by Dr. Morris who performed an ERCP yesterday evening. Following the ERCP, patient's abdominal pain completely resolved and his bilirubin levels have started to trending down this morning. Patient was able to eat and tolerate a low-fat soft diet. I have discussed with Dr. Morris who states that patient is good to be discharged from a GI standpoint. Of note, patient was evaluated by surgery for cholecystectomy but after coordination between surgery and patient's primary oncologist Dr. Martinez, the joint decision was made to hold off on cholecystectomy at this point per recommendations of the oncologist given patient was recently on chemotherapy and he is notable leukopenia and thrombocytopenia. Patient will be following up with a surgeon in the outpatient setting to have a cholecystectomy performed in the near future after being cleared by his oncologist. - Additional Information Resuscitation Status: Full Code Discharge Diet: As Tolerated Discharge Activity: Activity As Tolerated Referrals: [facility] [Outside] RON MORRIS MD [ACTIVE STAFF] - 02/01/20 1:45 pm ARIELLA MARTINEZ MD [NO LOCAL MD] - Home Medications: Pantoprazole Sodium [Protonix [address] Tablet] 40 mg PO Q6AM tablet. 12/03/19 History of Present Illiness History of Present Illness: YU FLOREZ is a 54 year old male with a history of colon cancer s/p resection 05/2019 currently on chemo completed 11 cycles, was transferred from [facility] to undergo ERCP for evaluation of cholestasis. Patient had presented to outside hospital yesterday with complaints of right upper quadrant abdominal pain that began 2 weeks ago radiating from the back to the abdominal region, occurring intermittently and lasting about 8 hours with no current. Exacerbated by food intake. No alleviating factors besides not eating. Denies prior episodes. Pain often feels sharp and aching. Admits to normal bowel m ovements. Over there, he was noted to have hyperbilirubinemia with total bilirubin of 4 and mildly elevated aminotransferases ast 98/alt 148 and ALP of 249. CT abdomen and pelvis showed mild inflammation of the distal gallbladder as well as enlargement of his hepatic ducts and common bile duct. Ultrasound revealed 5 x 8 mm stone within the common bile duct and CBD of 0.9 mm with extrahepatic biliary duct dilation but there was negative Zhu sign, mild gallbladder wall thickening of 0.3 cm and no pericholecystic fluid. Dr. Morris was contacted for ERCP and patient subsequently transferred over to [facility] for ERCP. Physical Exam Vital Signs: Temp Pulse Resp BP Pulse Ox 97.9 F 78 17 118/74 99 12/03/19 12:43 12/03/19 12:43 12/03/19 12:43 12/03/19 12:43 12/03/19 12:43 Intake & Output 12/02/19 12/03/19 12/04/19 06:59 06:59 06:59 Intake Total 1150 3346 358 Output Total 1050 Balance 100 3346 358 Weight 109.1 kg 106.6 kg General appearance: PRESENT: no acute distress, cooperative Respiratory exam: PRESENT: clear to auscultation nohemy Cardiovascular exam: PRESENT: +S1, +S2 GI/Abdominal exam: PRESENT: soft. ABSENT: rebound, rigid, tenderness Results Laboratory Results: WBC 1.6 10^3/uL (4.0-10.5) L 12/03/19 05:11 RBC 4.43 10^6/uL (4.35-5.55) 12/03/19 05:11 Hgb 12.9 g/dL (13.5-17.0) L 12/03/19 05:11 Hct 38.3 % (37.9-51.0) 12/03/19 05:11 MCV 87 fl (80-97) 12/03/19 05:11 MCH 29.2 pg (27.0-33.4) 12/03/19 05:11 MCHC 33.7 g/dL (32.0-36.0) 12/03/19 05:11 RDW 21.2 % (11.5-14.0) H 12/03/19 05:11 Plt Count 101 10^3/uL (150-450) L 12/03/19 05:11 Lymph % (Auto) Not Reportable 12/03/19 05:11 [place] % (Auto) Not Reportable 12/03/19 05:11 Eos % (Auto) Not Reportable 12/03/19 05:11 Baso % (Auto) Not Reportable 12/03/19 05:11 Absolute Neuts (auto) Not Reportable 12/03/19 05:11 Absolute Lymphs (auto) Not Reportable 12/03/19 05:11 Absolute Monos (auto) Not Reportable 12/03/19 05:11 Absolute Eos (auto) Not Reportable 12/03/19 05:11 Absolute Basos (auto) Not Reportable 12/03/19 05:11 Total Counted 50 12/03/19 05:11 Seg Neutrophils % Not Reportable 12/03/19 05:11 Seg Neuts % (Manual) 78 % (42-78) 12/03/19 05:11 Band Neutrophils % 1 % (3-5) L 12/02/19 05:35 Lymphocytes % (Manual) 18 % (13-45) 12/03/19 05:11 Atypical Lymphs % 2 % (0) 12/03/19 05:11 Monocytes % (Manual) 0 % (3-13) L 12/03/19 05:11 Eosinophils % (Manual) 2 % (0-6) 12/03/19 05:11 Basophils % (Manual) 0 % (0-2) 12/03/19 05:11 Abs Neuts (Manual) 1.2 10^3/uL (1.7-8.2) L 12/03/19 05:11 Abs Lymphs (Manual) 0.3 10^3/uL (0.5-4.7) L 12/03/19 05:11 Abs Monocytes (Manual) 0.0 10^3/uL (0.1-1.4) L 12/03/19 05:11 Absolute Eos (Manual) 0.0 10^3/uL (0.0-0.6) 12/03/19 05:11 Abs Basophils (Manual) 0.0 10^3/uL (0.0-0.2) 12/03/19 05:11 Platelet Comment DECREASED 12/03/19 05:11 Poikilocytosis 1+ 12/02/19 05:35 Anisocytosis 3+ 12/03/19 05:11 Tear Drop Cells SLIGHT 12/03/19 05:11 Ovalocytes 1+ 12/03/19 05:11 PT 13.3 SEC (11.4-15.4) 12/01/19 18:44 INR 1.01 12/01/19 18:44 APTT 28.1 SEC (23.5-35.8) 12/01/19 18:44 Sodium 138.9 mmol/L (137-145) 12/03/19 05:11 Potassium 4.6 mmol/L (3.6-5.0) 12/03/19 05:11 Chloride 109 mmol/L (98-107) H 12/03/19 05:11 Carbon Dioxide 23 mmol/L (22-30) 12/03/19 05:11 Anion Gap 7 (5-19) 12/03/19 05:11 BUN 5 mg/dL (7-20) L 12/03/19 05:11 Creatinine 0.57 mg/dL (0.52-1.25) 12/03/19 05:11 Est GFR ( Amer) > 60 (>60) 12/03/19 05:11 Est GFR (MDRD) Non-Af > 60 (>60) 12/03/19 05:11 Glucose 161 mg/dL (75-110) H 12/03/19 05:11 Calcium 9.6 mg/dL (8.4-10.2) 12/03/19 05:11 Magnesium 2.2 mg/dL (1.6-2.3) 12/02/19 05:35 Total Bilirubin 2.0 mg/dL (0.2-1.3) H D 12/03/19 05:11 Direct Bilirubin 0.8 mg/dL (0.0-0.4) H 12/03/19 05:11 Neonat Total Bilirubin Not Reportable 12/03/19 05:11 Neonat Direct Bilirubin Not Reportable 12/03/19 05:11 Neonat Indirect Bili Not Reportable 12/03/19 05:11 AST 114 U/L (17-59) H 12/03/19 05:11 ALT 121 U/L (<50) 12/03/19 05:11 Alkaline Phosphatase 228 U/L (38-126) H 12/03/19 05:11 Total Protein 6.2 g/dL (6.3-8.2) L 12/03/19 05:11 Albumin 3.5 g/dL (3.5-5.0) 12/03/19 05:11 Triglycerides 84 mg/dL (<150) 12/02/19 05:35 Cholesterol 195.54 mg/dL (0-200) 12/02/19 05:35 LDL Cholesterol Direct 113 mg/dL (<100) H 12/02/19 05:35 VLDL Cholesterol 17.0 mg/dL (10-31) 12/02/19 05:35 HDL Cholesterol 62 mg/dL (>40) 12/02/19 05:35 Lipase 547.4 U/L (23-300) H 12/01/19 18:44 Impressions: Catheter Placement 12/02/19 00:00 IMPRESSION: IMAGE(S) OBTAINED DURING PROCEDURE. Fluoroscopy 12/02/19 00:00 IMPRESSION: IMAGE(S) OBTAINED DURING PROCEDURE. Plan Time Spent: Less than 30 Minutes Stroke Is this a Stroke Patient?: No Acute Heart Failure - Is this a Heart Failure Patient?: No
[2019-12-03 14:32] LABS: PATH REVIEW PATHOLOGIST REVIEWED
== END 2019-12-03 13:15 | disposition home or self-care (01) | DRG 445 ==
LOC: 4S 17:26
PROVIDERS: ADMIT Internal Medicine; ATTEND Internal Medicine
PROC: BF101ZZ Fluoroscopy of Bile Ducts using Low Osmolar Contrast (ICD-10-PCS; 2019-12-02)
PROC: 0FC98ZZ Extirpation of Matter from Common Bile Duct, Via Natural or Artificial Opening Endoscopic (ICD-10-PCS; principal; 2019-12-02 18:00)
DX: K80.70 Calculus of gallbladder and bile duct without cholecystitis without obstruction (principal); C18.2 Malignant neoplasm of ascending colon; D70.1 Agranulocytosis secondary to cancer chemotherapy; T45.1X5A Adverse effect of antineoplastic and immunosuppressive drugs, initial encounter; D69.59 Other secondary thrombocytopenia; Z90.49 Acquired absence of other specified parts of digestive tract; Z79.899 Other long term (current) drug therapy; Z87.891 Personal history of nicotine dependence; Z88.8 Allergy status to other drugs, medicaments and biological substances
CPT/HCPCS: 36415; 43260; 732; 74328; 80053; 80061; 83690; 83735; 85025; 85027; 85610; 85730; J0330; J1100; J1610; J2250; J2405; J2704; J3010; J3490; J7042; Q9967